=== PATIENT | male | born 1945 ===

== ENCOUNTER 2021-10-21 23:58 | Emergency (ER) | payer SELFPAY ==
[2021-10-22 00:10] VITALS: BP 102/54; PULSE 58; TEMP 98.9; BMI 23.6
[2021-10-22 02:10] LABS: BASO % 0.4 % (0-2.0); EOS % 2.2 % (0-4.5); HEMATOCRIT 39.3 % (35.4-49); HEMOGLOBIN 12.9 GM/dL (11.7-16.9); LYMPH % 41.4 % (8-40); MCH 29.2 pg (25.7-33.7); MCHC 32.8 g/dl (32.0-35.9); MEAN CELL VOLUME 88.9 fl (80-96); MEAN PLT VOLUME 10.3 fl (7.5-11.1); MONO % 9.2 % (3.8-10.2); NEUT % 46.8 % (42.8-82.8); PLATELET COUNT 165 10^3/uL (134-434); RBC 4.42 M/mm3 (4.00-5.60); RDW 14.2 % (11.9-15.9); WHITE BLOOD COUNT 7.1 K/mm3 (4.0-10.0)
[2021-10-22 02:11] LABS: PH,URINE 6.5 (5.0-8.0); URINE APPEARANCE CLEAR; URINE BILIRUBIN NEGATIVE (NEGATIVE); URINE COLOR YELLOW; URINE GLUCOSE (UA) NEGATIVE (NEGATIVE); URINE KETONE NEGATIVE (NEGATIVE); URINE LEUK ESTERASE NEGATIVE (NEGATIVE); URINE NITRITE NEGATIVE (NEGATIVE); URINE PROTEIN NEGATIVE (NEGATIVE); URINE UROBILINOGEN 0.2 mg/dL (0.2-1.0)
[2021-10-22 02:24] LABS: INR 1.14 (0.83-1.09); PROTHROMBIN TIME (PATIENT) 13.4 SEC (9.7-13.0)
[2021-10-22 02:36] LABS: CHLORIDE 104 mmol/L (98-107); SODIUM 137 mmol/L (136-145)
[2021-10-22 02:38] LABS: ALBUMIN 3.1 g/dl (3.4-5.0); ANION GAP 7 MMOL/L (8-16); BLOOD UREA NITROGEN 20.4 mg/dL (7-18); CALCIUM 8.8 mg/dL (8.5-10.1); CO2 26 mmol/L (21-32); MAGNESIUM 2.2 mg/dL (1.8-2.4)
[2021-10-22 02:39] LABS: GLUCOSE,RANDOM 91 mg/dL (74-106)
[2021-10-22 02:41] LABS: SGPT/ALT 45 U/L (13-61)
[2021-10-22 02:42] LABS: CREATININE 1.2 mg/dL (0.55-1.3); SGOT/AST 31 U/L (15-37)
[2021-10-22 02:43] LABS: BILIRUBIN,TOTAL 0.3 mg/dL (0.2-1); TOT PROT 6.8 g/dl (6.4-8.2)
[2021-10-22 02:45] LABS: ALK PHOS 78 U/L (45-117)
== END 2021-10-22 05:05 | disposition left against medical advice (07) ==
LOC: JER 23:58 → JERBED 10-22 04:36 → UNDOADMOB 10-22 04:36 → JERBED 10-22 07:39
DX: R55 Syncope and collapse (principal)
CPT/HCPCS: 36415; 70450-TC; 71045-TC-FY; 80053; 81003; 82550; 82553; 82962; 83605; 83735; 84443; 84484; 85025; 85610; 85730; 93005; 93010; 99285-25; C9803; U0003; U0005